=== PATIENT | female | born 1960 | race Hispanic/Latino ===

== ENCOUNTER → 2019-01-31 | Outpatient (CLI) | payer MEDICARE ==
[~2019-01-31] MED LIST: AEC81 PO; CLOP75TA14 PO; CRAN475C2 PO; ISOS30TA6 PO; LISI5TAB PO; METO50TA18 PO; PANT40TA25 PO; SIMV20TA6 PO
== END | disposition home or self-care (01) ==
LOC: RAH 12:49
PROVIDERS: ATTEND Family Medicine
DX: Z12.31 Encounter for screening mammogram for malignant neoplasm of breast (principal); N64.89 Other specified disorders of breast
CPT/HCPCS: 77067

== ENCOUNTER → 2019-03-04 | Outpatient (CLI) | payer MEDICARE ==
[~2019-03-04] MED LIST changes: +SIMV-43 PO; -SIMV20TA6 PO
== END | disposition home or self-care (01) ==
LOC: RAH 08:27
PROVIDERS: ATTEND Family Medicine
DX: N60.01 Solitary cyst of right breast (principal); N60.02 Solitary cyst of left breast
CPT/HCPCS: 76641; 77066

== ENCOUNTER 2021-02-24 09:26 | Emergency (ER) | payer OTHER, MEDICARE ==
[~2021-02-24] VITALS: Ht 149.9 cm; Wt 86.2 kg
[~2021-02-24 09:26] MED LIST changes: -ISOS30TA6 PO; +ISOS30TA92 PO; -PANT40TA25 PO; +PANT40TA55 PO
[2021-02-24 09:56] VITALS: BP 165/74
[2021-02-24] MEDS ORDERED: ACETAMINOPHEN 500 MG TABLET PO SCH (10:00)
[2021-02-24] MEDS ORDERED: CYCL10TA16 PO (10:28)
[2021-02-24] MEDS ORDERED: IBUP-2070 PO (10:28)
[2021-02-24] MEDS ORDERED: METH4TAB PO (10:28)
== END 2021-02-24 10:48 | disposition home or self-care (01) ==
LOC: EDH 09:26
DX: M25.511 Pain in right shoulder (principal); M25.552 Pain in left hip; I11.0 Hypertensive heart disease with heart failure; I50.9 Heart failure, unspecified; I25.10 Atherosclerotic heart disease of native coronary artery without angina pectoris; E78.00 Pure hypercholesterolemia, unspecified; Z79.1 Long term (current) use of non-steroidal anti-inflammatories (NSAID); Z79.52 Long term (current) use of systemic steroids; Z79.82 Long term (current) use of aspirin; Z79.899 Other long term (current) drug therapy; Y08.89XA Assault by other specified means, initial encounter; Y93.89 Activity, other specified; Y92.89 Other specified places as the place of occurrence of the external cause; Y99.8 Other external cause status
CPT/HCPCS: 73030; 73552

== ENCOUNTER → 2021-08-10 | Outpatient (CLI) | payer OTHER, MEDICARE ==
[~2021-08-10] MED LIST changes: +CYCL10TA16 PO; +IBUP-2070 PO; +METH4TAB PO
== END | disposition home or self-care (01) ==
LOC: RAH 07-15 09:01
PROVIDERS: ATTEND Family Medicine
DX: N60.02 Solitary cyst of left breast (principal); N60.01 Solitary cyst of right breast; R92.8 Other abnormal and inconclusive findings on diagnostic imaging of breast
CPT/HCPCS: 77066

== ENCOUNTER → 2022-12-19 | Outpatient (CLI) | payer OTHER, MEDICARE ==
[~2022-12-19] MED LIST changes: +CLOP-31 PO; -CLOP75TA14 PO; +REGADENOSON 0.4 MG/5 ML PF SYG IVP ONE
== END | disposition home or self-care (01) ==
LOC: SHCH 07:52
PROVIDERS: ATTEND Internal Medicine Cardiovascular Disease
DX: R94.39 Abnormal result of other cardiovascular function study (principal); I25.10 Atherosclerotic heart disease of native coronary artery without angina pectoris; I25.5 Ischemic cardiomyopathy; I25.2 Old myocardial infarction; Z95.5 Presence of coronary angioplasty implant and graft
CPT/HCPCS: 78452; 96374; 93017; J2785; A9500 ×2

== ENCOUNTER → 2023-09-05 | Outpatient (CLI) | payer OTHER, MEDICARE ==
[~2023-09-05] MED LIST changes: -REGADENOSON 0.4 MG/5 ML PF SYG IVP ONE
== END | disposition home or self-care (01) ==
LOC: RAH 08:37
PROVIDERS: ATTEND Family Medicine
DX: N60.02 Solitary cyst of left breast (principal); N60.01 Solitary cyst of right breast; R92.333 Mammographic heterogeneous density, bilateral breasts; R92.8 Other abnormal and inconclusive findings on diagnostic imaging of breast
CPT/HCPCS: 77066